=== PATIENT | female | born 1975 | race Caucasian/White ===

== ENCOUNTER → 2019-11-20 | Day surgery (SDC) | payer OTHER ==
[2019-11-07 11:07] LABS: HEMATOCRIT 27.7 % (34.2-44.1); HEMOGLOBIN 7.4 g/dL (12.0-16.0)
[~2019-11-20] MED LIST: FENTANYL CITRATE/PF 100MCG/2 ML INJ ONE; FERROUS SULFAT325 MG PO; HYOSCYAMINE 0.125 MG TAB ONE; LIDOCAINE HCL 2% LOCAL INJ 5 ML SDV VIAL INJ ONE; METOCLOPRAMIDE HCL 10 MG/2ML VIAL ONE; MIDAZOLAM HCL 2 MG/2 ML VIAL ONE; PROPOFOL IV EMULSION 10 MG/ML 20 ML VIAL ONE; SYNJARDY 5-1,01 EACH PO
[2019-11-20 16:00] VITALS: BP 108/65
--- NOTE | 2019-11-20 16:40 | Operative Report ---
DATE OF PROCEDURE: 11/20/2019 SURGEON: Obinna Salazar MD PROCEDURE: Esophagogastroduodenoscopy, biopsies with colonoscopy and polypectomy. INDICATIONS FOR EGD: Anemia and history of dark stools. INDICATIONS FOR COLONOSCOPY: Anemia, lower abdominal pain. MEDICATIONS: The patient was done under MAC, please see anesthesiologist's note. PROCEDURE IN DETAIL: With the patient in left lateral decubitus position, a flexible fiberoptic Olympus gastroscope was introduced into the esophagus under direct visualization without any difficulty. There were some patchy erythema noted in distal esophagus. The scope was then advanced with ease into the stomach. Mucosa overlying the antrum and the body revealed some patchy erythema and [id number]-[id number] edema. Biopsies were obtained for H pylori. The pylorus was intubated with ease and the scope was advanced all the way to the second portion of the duodenum. Biopsies were obtained from the proximal second portion and duodenal bulb to rule out sprue. The scope was then withdrawn back into the stomach and retroflexed and mucosa overlying the fundus and cardia appeared to be within limits. The scope was then straightened out, it was subsequently withdrawn. The patient tolerated the procedure well. IMPRESSION: 1. Distal esophagitis, mild. 2. Gastritis, biopsied, biopsies sent to stain for Helicobacter pylori. 3. Rule out sprue. PLAN: Follow up histology. Initiate Protonix 40 mg one p.o. q.a.m. a.c. PROCEDURE IN DETAIL: The patient was then turned around after adequate lubrication of the anal canal. A flexible fiberoptic Olympus colonoscope was inserted into the rectum with ease and advanced all the way to the cecum. The scope was then withdrawn slowly and mucosa overlying the cecum, ascending colon, transverse colon, descending colon appeared to be within normal limits. One polyp was hot snared, one polyp was hot biopsied from the sigmoid. The rectum appeared to be within normal limits. The scope was then retroflexed into the distal rectum and moderate size internal hemorrhoids were noted, none of which was actively bleeding. The scope was then straightened out, it was subsequently withdrawn. The patient tolerated the procedure well. IMPRESSION: 1. Sigmoid colon polyps x2, one hot snared, one hot biopsied. 2. Large internal hemorrhoids, none actively bleeding. PLAN: Follow up histology. Initiate high-fiber, low-fat diet. Initiate high-fiber supplement. The patient will need small bowel series and if negative, capsule endoscopy. The patient might benefit from a followup colonoscopy in 3 years. Obinna Salazar MD [facility] [place]/JARROD /[id number] cc: Jamal Lentz MD
[2019-11-26 06:12] LABS: ENDOMYSIAL ANTIBODIES, IGA Negative (Negative)
== END | disposition home or self-care (01) ==
LOC: OR 12:51
PROVIDERS: ATTEND Internal Medicine Gastroenterology
DX: K29.50 Unspecified chronic gastritis without bleeding (principal); K63.5 Polyp of colon; K20.9 Esophagitis, unspecified; R19.5 Other fecal abnormalities; K64.8 Other hemorrhoids; D72.820 Lymphocytosis (symptomatic); D64.89 Other specified anemias; E11.9 Type 2 diabetes mellitus without complications; Z88.6 Allergy status to analgesic agent; Z01.810 Encounter for preprocedural cardiovascular examination; Z01.812 Encounter for preprocedural laboratory examination; Z11.59 Encounter for screening for other viral diseases; Z79.84 Long term (current) use of oral hypoglycemic drugs
CPT/HCPCS: 36415 ×2; 43239; 45384; 45385; 81025; 82784; 82948; 83516; 85014; 85018; 86256; 93005; J2001; J2250; J2704; J2765; J3010; U0002 ×2; 45378